=== PATIENT | male | born 1945 | race Caucasian/White ===

== ENCOUNTER 2017-12-17 11:02 | Day surgery (SDC) | payer OTHER ==
--- NOTE | 2017-12-16 09:05 | HP ---
DATE OF SURGERY: 12/17/2017 ADMISSION DIAGNOSIS: Five year follow up colonoscopy, history of polyps. ANTICIPATED PROCEDURE: Internal hemorrhoidal banding and colonoscopic examination. HISTORY OF PRESENT ILLNESS: The patient also has hemorrhoids desiring to have hemorrhoidal banding. They are markedly symptomatic. PAST MEDICAL HISTORY: ALLERGIES: NKDA. MEDICATIONS: Per the chart. PAST SURGICAL HISTORY: Colonoscopy. SOCIAL HISTORY: Negative. FAMILY HISTORY: Negative. REVIEW OF SYSTEMS: Negative. PHYSICAL EXAMINATION: VITAL SIGNS: Normal. CHEST: Clear. COR: Regular. ABDOMEN: No palpable organomegaly or mass. IMPRESSION: History of polyps, significant internal hemorrhoids symptomatic refractory to care. PLAN: Internal hemorrhoidal banding and colonoscopic examination.
[~2017-12-17 11:02] MED LIST: Lactated Ringers 1,000 ML IV ONE; Lactated Ringers 1,000 ML IV SCH
[2017-12-17] MEDS ORDERED: SUBLIMAZE 100 MCG/2 ML IV ONE (11:03)
[2017-12-17] MEDS ORDERED: Quelicin Fliptop 200 MG/10 ML IJ ONE (11:03)
[2017-12-17] MEDS ORDERED: DIPRIVAN 200 MG/20 ML IV ONE (11:03)
[2017-12-17] MEDS ORDERED: Ephedrine Sulfate 50 MG/ML IJ ONE (11:03)
[2017-12-17] MEDS ORDERED: Zemuron 100 MG/10 ML IJ ONE (11:03)
[2017-12-17] MEDS ORDERED: Lactated Ringers 1,000 ML IV ONE (11:12)
[2017-12-17] MEDS ORDERED: PROVENTIL COMMON CANISTER IH PRN (11:31)
[2017-12-17] MEDS ORDERED: GlucaGen 1 MG IM ONE (13:00)
[2017-12-17 14:04] VITALS: O2SAT 98
[2017-12-17 14:29] VITALS: BP 143/61; PULSE 58
--- NOTE | 2017-12-21 10:37 | OP ---
SURGERY DATE/TIME: 12/17/2017 1236 PREOPERATIVE DIAGNOSIS: Screening and probable hemorrhoids. POSTOPERATIVE DIAGNOSES: 1) One cecal polyp. 2) One large internal hemorrhoid. PROCEDURES: 1) Colonoscopy complete to cecum with hot polypectomy x1. 2) Internal hemorrhoidal banding x1. SURGEON: Rey Trimble M.D. ANESTHESIA: General. COMPLICATIONS: None. CONDITION: Stable. INDICATION: A patient with above stated condition. DESCRIPTION OF PROCEDURE: Taken to surgery. General anesthetic. Routine prep and drape. Colonoscope advanced to the cecum. There was a real polyp 8 to 9 mm taken with hot biopsy forceps to extinction over in the right colon. The rest of the exam was satisfactory. The mucosa was good. The prep was good. The prep is 4 to 9 out of 9. Withdrawal time greater than 6 minutes. The anal retractor was placed and a massive internal hemorrhoid was present at 11:00. It was inspected. There were no hemorrhoids at 5:00 and 7:00. The 11:00 hemorrhoid was suctioned up and banded. The band looked excellent. It was above the pectineal line in good position. The patient tolerated the procedure satisfactorily. Findings discussed with the .
== END 2017-12-17 14:37 | disposition home or self-care (01) ==
LOC: SDC 11:02
PROVIDERS: ATTEND Surgery
DX: Z12.11 Encounter for screening for malignant neoplasm of colon (principal); K63.5 Polyp of colon; K64.8 Other hemorrhoids; Z86.010 Personal history of colon polyps
CPT/HCPCS: 45398; 88305; 94250; 99100; J0330; J1610; J2704; J3010